=== PATIENT | female | born 2000 | race Caucasian/White ===

== ENCOUNTER 2020-08-24 23:16 | Emergency (ER) | payer OTHER ==
[~2020-08-24] VITALS: Ht 208.3 cm; Wt 77.1 kg
[~2020-08-24 23:16] MED LIST: Crutch1 EACH MISC; IBUP600 PO; IBUP800 PO; VICODIN 5-3001 EACH PO
[2020-08-25 00:05] LABS: Source, Urine Clean Catch
[2020-08-25] MEDS ORDERED: Macrobid 100 M100 MG PO (00:06)
[2020-08-25 00:07] LABS: Bilirubin, Urine Neg (Neg); Blood, Urine 5+ (Neg); Glucose Qualitative, Urine Neg (Neg); Ketones, Urine Neg (Neg); Leukocyte Esterase, Urine 3+ (Neg); Nitrite, Urine Neg (Neg); Protein, Urine 2+ (Neg); Urobilinogen, Urine NORM (Normal)
[2020-08-25 00:12] LABS: Appearance, Urine Clear (Clear); Color, Urine Yellow (P-Yellow)
[2020-08-25 00:13] LABS: Bacteria Mod /hpf; Squamous Epithelial Cells Not Seen /hpf (Few); White Blood Cells, Urine 25-50 /hpf (0-5)
== END 2020-08-25 00:20 | disposition home or self-care (01) ==
LOC: ER 23:16
PROVIDERS: Physician Assistant
DX: N39.0 Urinary tract infection, site not specified (principal)
CPT/HCPCS: 81001; 81025; 87086; 99283

== ENCOUNTER → 2021-07-08 | Outpatient (CLI) | payer OTHER ==
[~2021-07-08] MED LIST changes: +Macrobid 100 M100 MG PO
== END | disposition home or self-care (01) ==
LOC: LAB 16:55 → LAB SHORT 16:55
PROVIDERS: Obstetrics & Gynecology
DX: Z01.419 Encounter for gynecological examination (general) (routine) without abnormal findings (principal)
CPT/HCPCS: G0123

== ENCOUNTER → 2021-10-30 | Outpatient (CLI) | payer OTHER ==
[~2021-10-30] MED LIST changes: +ESTARYLLA 0.251 EACH PO
== END | disposition home or self-care (01) ==
LOC: LAB SHORT 14:15
DX: R31.9 Hematuria, unspecified (principal)
CPT/HCPCS: 87086

== ENCOUNTER 2021-11-02 21:20 | Emergency (ER) | payer OTHER ==
[~2021-11-02] VITALS: Ht 175.3 cm; Wt 86.2 kg
[~2021-11-02 21:20] MED LIST changes: -ESTARYLLA 0.251 EACH PO
[2021-11-02] MEDS ORDERED: ESTARYLLA 0.251 EACH PO (21:54)
[2021-11-02 22:54] LABS: Source, Urine Clean Catch
[2021-11-02 22:59] LABS: BASOPHILS ABSOLUTE AUTO 0.04 K/mm3 (0.00-0.23); BASOPHILS PERCENT AUTO 0 % (0-2); EOSINOPHILS ABSOLUTE AUTO 0.01 K/mm3 (0.00-0.68); EOSINOPHILS PERCENT AUTO 0 % (0-6); Hematocrit 38.2 % (33.0-51.0); Hemoglobin 12.9 g/dL (11.5-16.0); IMMATURE GRAN ABSOLUTE AUTO 0.06 K/mm3 (0.00-0.10); IMMATURE GRAN PERCENT AUTO 1 % (0-1); LYMPHOCYTES ABSOLUTE AUTO 1.29 K/mm3 (0.84-5.20); LYMPHOCYTES PERCENT AUTO 11 % (21-46); MONOCYTES PERCENT AUTO 6 % (4-13); Mean Corpuscular HGB Conc 33.8 g/dL (31.5-36.5); Mean Corpuscular Volume 86 fL (80-100); Mean Platelet Volume 8.9 fL (9.1-12.4); NEUTROPHILS ABSOLUTE AUTO 9.76 K/mm3 (1.96-9.15); NEUTROPHILS PERCENT AUTO 82 % (41-73); Platelet Count 302 K/mm3 (150-400); RDW Coefficient Variation 11.5 % (11.7-14.2); RDW Standard Deviation 35.6 fL (35.1-46.3); Red Blood Cell Count 4.45 M/mm3 (3.80-5.20); White Blood Cell Count 11.86 K/mm3 (4.00-11.30)
[2021-11-02 23:01] LABS: Bilirubin, Urine Neg (Neg); Blood, Urine 4+ (Neg); Glucose Qualitative, Urine Neg (Neg); Ketones, Urine Neg (Neg); Leukocyte Esterase, Urine Neg (Neg); Nitrite, Urine Neg (Neg); Protein, Urine Neg (Neg); Specific Gravity, Urine 1.005 (1.003-1.022); Urobilinogen, Urine NORM (Normal)
[2021-11-02 23:02] LABS: Appearance, Urine Clear (Clear); Color, Urine Pale Yellow (P-Yellow)
[2021-11-02 23:13] LABS: Bacteria Not Seen /hpf; Squamous Epithelial Cells Rare /hpf (Few); White Blood Cells, Urine Not Seen /hpf (0-5)
[2021-11-02 23:25] LABS: Alanine Aminotransfer (ALT/SGP 23 U/L (12-78); Albumin, Blood 3.7 g/dL (3.4-5.0); Albumin/Globulin Ratio 0.8 (0.8-1.8); Alk Phos 80 U/L (50-136); Anion Gap 7 mmol/L (6-16); Aspartate Aminotrans (AST/SGOT 12 U/L (12-37); Bilirubin, Total 0.2 mg/dL (0.1-1.0); Blood Urea Nitrogen 12 mg/dL (8-24); Bun/Creatinine Ratio 13.4 (12.0-20.0); CO2, Blood 24 mmol/L (21-32); Calcium, Blood 9.2 mg/dL (8.5-10.1); Chloride, Blood 110 mmol/L (98-108); Globulin, Blood 4.5 g/dL (2.2-4.0); Glomerular Filtration Rate >60 (60-); Glucose, Blood 107 mg/dL (70-99); Magnesium, Blood 2.3 mg/dL (1.6-2.4); Potassium, Blood 3.6 mmol/L (3.5-5.5); Sodium, Blood 141 mmol/L (136-145); Total Protein, Blood 8.2 g/dL (6.4-8.2)
[2021-11-03] LABS: Influenza A, PCR NEGATIVE (NEGATIVE); Influenza B, PCR NEGATIVE (NEGATIVE); Resp Syncytial Virus, PCR NEGATIVE (NEGATIVE); SARS-Cov-2 (COVID-19) PCR, MMC NEGATIVE (NEGATIVE)
== END 2021-11-03 00:52 | disposition home or self-care (01) ==
LOC: ER 21:20
PROVIDERS: Emergency Medicine
DX: R20.2 Paresthesia of skin (principal); F41.9 Anxiety disorder, unspecified; Z20.822 Contact with and (suspected) exposure to COVID-19
CPT/HCPCS: 0241U; 36415; 80053; 81001; 81025; 83735; 85025; 93005; 93010; A9270

== ENCOUNTER 2021-11-28 12:31 | Emergency (ER) | payer OTHER ==
[~2021-11-28] VITALS: Ht 177.8 cm; Wt 88.0 kg
[~2021-11-28 12:31] MED LIST changes: +ESTARYLLA 0.251 EACH PO
[2021-11-28 13:21] LABS: BASOPHILS ABSOLUTE AUTO 0.02 K/mm3 (0.00-0.23); BASOPHILS PERCENT AUTO 0 % (0-2); EOSINOPHILS ABSOLUTE AUTO 0.04 K/mm3 (0.00-0.68); EOSINOPHILS PERCENT AUTO 1 % (0-6); Hematocrit 38.3 % (33.0-51.0); Hemoglobin 12.7 g/dL (11.5-16.0); IMMATURE GRAN ABSOLUTE AUTO 0.02 K/mm3 (0.00-0.10); IMMATURE GRAN PERCENT AUTO 0 % (0-1); LYMPHOCYTES ABSOLUTE AUTO 1.79 K/mm3 (0.84-5.20); LYMPHOCYTES PERCENT AUTO 25 % (21-46); MONOCYTES ABSOLUTE AUTO 0.53 K/mm3 (0.16-1.47); MONOCYTES PERCENT AUTO 7 % (4-13); Mean Corpuscular HGB 28.9 pg (26.0-34.0); Mean Corpuscular HGB Conc 33.2 g/dL (31.5-36.5); Mean Corpuscular Volume 87 fL (80-100); Mean Platelet Volume 8.8 fL (9.1-12.4); NEUTROPHILS ABSOLUTE AUTO 4.92 K/mm3 (1.96-9.15); NEUTROPHILS PERCENT AUTO 67 % (41-73); Platelet Count 301 K/mm3 (150-400); RDW Coefficient Variation 11.6 % (11.7-14.2); RDW Standard Deviation 37.1 fL (35.1-46.3); White Blood Cell Count 7.32 K/mm3 (4.00-11.30)
[2021-11-28 13:49] LABS: Alanine Aminotransfer (ALT/SGP 22 U/L (12-78); Albumin, Blood 3.8 g/dL (3.4-5.0); Albumin/Globulin Ratio 0.9 (0.8-1.8); Alk Phos 82 U/L (50-136); Anion Gap 7 mmol/L (6-16); Aspartate Aminotrans (AST/SGOT 13 U/L (12-37); Bilirubin, Total 0.4 mg/dL (0.1-1.0); Blood Urea Nitrogen 13 mg/dL (8-24); Bun/Creatinine Ratio 16.5 (12.0-20.0); CO2, Blood 23 mmol/L (21-32); Calcium, Blood 9.3 mg/dL (8.5-10.1); Chloride, Blood 111 mmol/L (98-108); Creatinine, Blood 0.79 mg/dL (0.40-1.00); Globulin, Blood 4.4 g/dL (2.2-4.0); Glomerular Filtration Rate >60 (60-); Glucose, Blood 117 mg/dL (70-99); Potassium, Blood 3.4 mmol/L (3.5-5.5); Sodium, Blood 141 mmol/L (136-145); Total Protein, Blood 8.2 g/dL (6.4-8.2)
== END 2021-11-28 18:05 | disposition home or self-care (01) ==
LOC: ER 12:31
PROVIDERS: Physician Assistant
DX: F41.1 Generalized anxiety disorder (principal); R00.2 Palpitations; Z79.899 Other long term (current) drug therapy
CPT/HCPCS: 71046; 80053; 84484; 85025; 93005; 93010; 99284-25

== ENCOUNTER 2021-12-03 03:38 | Emergency (ER) | payer OTHER ==
[~2021-12-03] VITALS: Ht 177.8 cm; Wt 86.2 kg
[2021-12-03] MEDS ORDERED: XANAX0.25 MG PO (03:48)
[2021-12-03] MEDS ORDERED: CELEXA10 MG PO (03:48)
[2021-12-03] MEDS ORDERED: HYDHCL25 PO (03:55)
== END 2021-12-03 04:18 | disposition home or self-care (01) ==
LOC: ER 03:38
DX: F41.9 Anxiety disorder, unspecified (principal)
CPT/HCPCS: 99283

== ENCOUNTER 2021-12-04 12:31 | Emergency (ER) | payer OTHER ==
[~2021-12-04] VITALS: Ht 177.8 cm; Wt 85.7 kg
[~2021-12-04 12:31] MED LIST changes: +CELEXA10 MG PO; +HYDHCL25 PO; +XANAX0.25 MG PO
[2021-12-04 13:46] LABS: BASOPHILS ABSOLUTE AUTO 0.03 K/mm3 (0.00-0.23); BASOPHILS PERCENT AUTO 0 % (0-2); EOSINOPHILS ABSOLUTE AUTO 0.01 K/mm3 (0.00-0.68); EOSINOPHILS PERCENT AUTO 0 % (0-6); Hematocrit 40.6 % (33.0-51.0); Hemoglobin 13.5 g/dL (11.5-16.0); IMMATURE GRAN ABSOLUTE AUTO 0.02 K/mm3 (0.00-0.10); IMMATURE GRAN PERCENT AUTO 0 % (0-1); LYMPHOCYTES ABSOLUTE AUTO 1.34 K/mm3 (0.84-5.20); LYMPHOCYTES PERCENT AUTO 19 % (21-46); MONOCYTES ABSOLUTE AUTO 0.36 K/mm3 (0.16-1.47); MONOCYTES PERCENT AUTO 5 % (4-13); Mean Corpuscular HGB 28.9 pg (26.0-34.0); Mean Corpuscular HGB Conc 33.3 g/dL (31.5-36.5); Mean Corpuscular Volume 87 fL (80-100); Mean Platelet Volume 8.7 fL (9.1-12.4); NEUTROPHILS ABSOLUTE AUTO 5.27 K/mm3 (1.96-9.15); NEUTROPHILS PERCENT AUTO 75 % (41-73); Platelet Count 334 K/mm3 (150-400); RDW Coefficient Variation 11.6 % (11.7-14.2); RDW Standard Deviation 36.7 fL (35.1-46.3); Red Blood Cell Count 4.67 M/mm3 (3.80-5.20); White Blood Cell Count 7.03 K/mm3 (4.00-11.30)
[2021-12-04 13:50] LABS: Influenza A, PCR NEGATIVE (NEGATIVE); Influenza B, PCR NEGATIVE (NEGATIVE); Resp Syncytial Virus, PCR NEGATIVE (NEGATIVE); SARS-Cov-2 (COVID-19) PCR, MMC NEGATIVE (NEGATIVE)
[2021-12-04 13:57] LABS: Anion Gap 7 mmol/L (6-16); Blood Urea Nitrogen 10 mg/dL (8-24); Bun/Creatinine Ratio 12.3 (12.0-20.0); CO2, Blood 25 mmol/L (21-32); Calcium, Blood 9.8 mg/dL (8.5-10.1); Chloride, Blood 107 mmol/L (98-108); Creatinine, Blood 0.82 mg/dL (0.40-1.00); Glomerular Filtration Rate >60 (60-); Glucose, Blood 112 mg/dL (70-99); Potassium, Blood 3.4 mmol/L (3.5-5.5); Sodium, Blood 139 mmol/L (136-145)
[2021-12-04 14:08] LABS: Source, Urine Clean Catch
[2021-12-04 14:16] LABS: Appearance, Urine Clear (Clear); Bilirubin, Urine Neg (Neg); Blood, Urine 5+ (Neg); Color, Urine Yellow (P-Yellow); Glucose Qualitative, Urine Neg (Neg); Ketones, Urine Neg (Neg); Leukocyte Esterase, Urine Neg (Neg); Nitrite, Urine Neg (Neg); Protein, Urine Neg (Neg); Specific Gravity, Urine 1.005 (1.003-1.022); Urobilinogen, Urine NORM (Normal)
[2021-12-04 14:28] LABS: Bacteria Few /hpf; Squamous Epithelial Cells Few /hpf (Few); White Blood Cells, Urine 0-2 /hpf (0-5)
== END 2021-12-04 17:06 | disposition home or self-care (01) ==
LOC: ER 12:31
PROVIDERS: Physician Assistant
DX: R11.2 Nausea with vomiting, unspecified (principal); R19.7 Diarrhea, unspecified; R20.0 Anesthesia of skin; R00.2 Palpitations; R25.1 Tremor, unspecified; T43.225A Adverse effect of selective serotonin reuptake inhibitors, initial encounter; Z79.899 Other long term (current) drug therapy
CPT/HCPCS: 0241U; 36415; 70450; 80048; 81001; 81025; 85025; 87086; 96374; 99284-25; J2405; J7030

== ENCOUNTER → 2021-12-22 | Outpatient (CLI) | payer OTHER | END | disposition home or self-care (01) | LOC: LAB 14:15 → LAB SHORT 14:15 | DX: N39.0 Urinary tract infection, site not specified (principal) | CPT/HCPCS: 87077; 87086; 87186 ==

== ENCOUNTER → 2021-12-25 | Outpatient (CLI) | payer OTHER ==
[2021-12-25 19:31] LABS: BASOPHILS ABSOLUTE AUTO 0.03 K/mm3 (0.00-0.23); BASOPHILS PERCENT AUTO 0 % (0-2); EOSINOPHILS ABSOLUTE AUTO 0.05 K/mm3 (0.00-0.68); EOSINOPHILS PERCENT AUTO 1 % (0-6); Hematocrit 37.9 % (33.0-51.0); Hemoglobin 12.6 g/dL (11.5-16.0); IMMATURE GRAN ABSOLUTE AUTO 0.03 K/mm3 (0.00-0.10); IMMATURE GRAN PERCENT AUTO 0 % (0-1); LYMPHOCYTES ABSOLUTE AUTO 1.99 K/mm3 (0.84-5.20); LYMPHOCYTES PERCENT AUTO 21 % (21-46); MONOCYTES ABSOLUTE AUTO 0.73 K/mm3 (0.16-1.47); MONOCYTES PERCENT AUTO 8 % (4-13); Mean Corpuscular HGB 28.8 pg (26.0-34.0); Mean Corpuscular HGB Conc 33.2 g/dL (31.5-36.5); Mean Corpuscular Volume 87 fL (80-100); Mean Platelet Volume 9.1 fL (9.1-12.4); NEUTROPHILS ABSOLUTE AUTO 6.55 K/mm3 (1.96-9.15); NEUTROPHILS PERCENT AUTO 70 % (41-73); Platelet Count 324 K/mm3 (150-400); RDW Coefficient Variation 11.9 % (11.7-14.2); RDW Standard Deviation 37.5 fL (35.1-46.3); Red Blood Cell Count 4.37 M/mm3 (3.80-5.20); White Blood Cell Count 9.38 K/mm3 (4.00-11.30)
[2021-12-25 19:48] LABS: Alanine Aminotransfer (ALT/SGP 32 U/L (12-78); Albumin, Blood 3.9 g/dL (3.4-5.0); Alk Phos 111 U/L (50-136); Anion Gap 7 mmol/L (6-16); Aspartate Aminotrans (AST/SGOT 18 U/L (12-37); Bilirubin, Total 0.5 mg/dL (0.1-1.0); Blood Urea Nitrogen 7 mg/dL (8-24); Bun/Creatinine Ratio 8.8 (12.0-20.0); CO2, Blood 24 mmol/L (21-32); Calcium, Blood 9.2 mg/dL (8.5-10.1); Chloride, Blood 109 mmol/L (98-108); Creatinine, Blood 0.79 mg/dL (0.40-1.00); Globulin, Blood 3.8 g/dL (2.2-4.0); Glomerular Filtration Rate >60 (60-); Glucose, Blood 85 mg/dL (70-99); Magnesium, Blood 2.3 mg/dL (1.6-2.4); Potassium, Blood 3.6 mmol/L (3.5-5.5); Sodium, Blood 140 mmol/L (136-145); Total Protein, Blood 7.7 g/dL (6.4-8.2)
== END | disposition home or self-care (01) ==
LOC: LAB SHORT 17:55 → LAB 17:55
PROVIDERS: Nurse Practitioner Family
DX: R42 Dizziness and giddiness (principal)
CPT/HCPCS: 80053; 83735; 84443; 85025; 86140

== ENCOUNTER 2021-12-30 16:11 | Emergency (ER) | payer OTHER ==
[~2021-12-30] VITALS: Ht 177.8 cm; Wt 88.0 kg
== END 2021-12-30 18:00 | disposition home or self-care (01) ==
LOC: ER 16:11
DX: F41.9 Anxiety disorder, unspecified (principal); R53.1 Weakness
CPT/HCPCS: 82947; 93005; 93010; 99283-25

== ENCOUNTER 2022-01-07 11:20 | Emergency (ER) | payer OTHER ==
[~2022-01-07] VITALS: Ht 177.8 cm; Wt 86.2 kg
[2022-01-07 12:23] LABS: Source, Urine Clean Catch
[2022-01-07 12:24] LABS: BASOPHILS ABSOLUTE AUTO 0.03 K/mm3 (0.00-0.23); BASOPHILS PERCENT AUTO 0 % (0-2); EOSINOPHILS ABSOLUTE AUTO 0.04 K/mm3 (0.00-0.68); EOSINOPHILS PERCENT AUTO 1 % (0-6); Hematocrit 36.6 % (33.0-51.0); Hemoglobin 12.2 g/dL (11.5-16.0); IMMATURE GRAN ABSOLUTE AUTO 0.02 K/mm3 (0.00-0.10); IMMATURE GRAN PERCENT AUTO 0 % (0-1); LYMPHOCYTES ABSOLUTE AUTO 1.96 K/mm3 (0.84-5.20); LYMPHOCYTES PERCENT AUTO 22 % (21-46); MONOCYTES ABSOLUTE AUTO 0.87 K/mm3 (0.16-1.47); MONOCYTES PERCENT AUTO 10 % (4-13); Mean Corpuscular HGB 29.3 pg (26.0-34.0); Mean Corpuscular HGB Conc 33.3 g/dL (31.5-36.5); Mean Corpuscular Volume 88 fL (80-100); NEUTROPHILS ABSOLUTE AUTO 5.83 K/mm3 (1.96-9.15); NEUTROPHILS PERCENT AUTO 67 % (41-73); Platelet Count 277 K/mm3 (150-400); RDW Standard Deviation 38.5 fL (35.1-46.3); Red Blood Cell Count 4.16 M/mm3 (3.80-5.20); White Blood Cell Count 8.75 K/mm3 (4.00-11.30)
[2022-01-07 12:26] LABS: Appearance, Urine Clear (Clear); Bilirubin, Urine Neg (Neg); Blood, Urine 4+ (Neg); Color, Urine Yellow (P-Yellow); Glucose Qualitative, Urine Neg (Neg); Ketones, Urine Neg (Neg); Leukocyte Esterase, Urine Neg (Neg); Nitrite, Urine Neg (Neg); Protein, Urine Neg (Neg); Specific Gravity, Urine 1.015 (1.003-1.022); Urobilinogen, Urine NORM (Normal)
[2022-01-07 12:53] LABS: Alanine Aminotransfer (ALT/SGP 30 U/L (12-78); Albumin, Blood 3.7 g/dL (3.4-5.0); Alk Phos 83 U/L (50-136); Anion Gap 6 mmol/L (6-16); Aspartate Aminotrans (AST/SGOT 18 U/L (12-37); Bilirubin, Total 0.4 mg/dL (0.1-1.0); Blood Urea Nitrogen 11 mg/dL (8-24); Bun/Creatinine Ratio 15.8 (12.0-20.0); CO2, Blood 26 mmol/L (21-32); Calcium, Blood 9.1 mg/dL (8.5-10.1); Chloride, Blood 109 mmol/L (98-108); Globulin, Blood 3.7 g/dL (2.2-4.0); Glomerular Filtration Rate >60 (60-); Glucose, Blood 80 mg/dL (70-99); Potassium, Blood 3.6 mmol/L (3.5-5.5); Sodium, Blood 141 mmol/L (136-145); Total Protein, Blood 7.4 g/dL (6.4-8.2)
[2022-01-07 13:32] LABS: Bacteria Rare /hpf; Squamous Epithelial Cells Rare /hpf (Few); White Blood Cells, Urine 0-2 /hpf (0-5)
[2022-01-19] MEDS ORDERED: CYMBALTA30 M2 PO (15:29)
== END 2022-01-07 14:00 | disposition home or self-care (01) ==
LOC: ER 11:20
PROVIDERS: Physician Assistant
DX: R55 Syncope and collapse (principal)
CPT/HCPCS: 80053; 81001; 81025; 83690; 85025; 93005; 93010; 96374; 99284-25; J1885

== ENCOUNTER → 2022-01-08 | Outpatient (CLI) | payer OTHER ==
[~2022-01-08] MED LIST changes: +CYMBALTA30 M2 PO
[2022-01-08 12:44] LABS: Source, Urine Clean Catch
[2022-01-08 15:39] LABS: Bacteria Mod /hpf; Mucus Light (0-Heavy); Squamous Epithelial Cells Many /hpf (Few)
== END | disposition home or self-care (01) ==
LOC: LAB 12:42 → LAB SHORT 12:42
PROVIDERS: Student in an Organized Health Care Education/Training Program
DX: R31.9 Hematuria, unspecified (principal)
CPT/HCPCS: 81015; 87086

== ENCOUNTER → 2022-01-11 | Outpatient (CLI) | payer OTHER ==
[~2022-01-11] MED LIST changes: -CYMBALTA30 M2 PO
== END | disposition home or self-care (01) ==
LOC: LAB SHORT 15:30 → LAB 15:30
DX: R03.0 Elevated blood-pressure reading, without diagnosis of hypertension (principal)
CPT/HCPCS: 87086

== ENCOUNTER 2022-01-20 14:24 | Emergency (ER) | payer SELFPAY ==
[~2022-01-20] VITALS: Ht 180.3 cm; Wt 86.2 kg
[~2022-01-20 14:24] MED LIST changes: +CYMBALTA30 M2 PO
== END 2022-01-20 15:51 | disposition home or self-care (01) ==
LOC: ER 14:24
DX: F41.9 Anxiety disorder, unspecified (principal); R51.9 Headache, unspecified
CPT/HCPCS: 99283; A9270

== ENCOUNTER 2022-01-20 20:57 | Emergency (ER) | payer SELFPAY ==
[~2022-01-20] VITALS: Ht 177.8 cm; Wt 86.2 kg
== END 2022-01-20 22:36 | disposition home or self-care (01) ==
LOC: ER 20:57
DX: F41.9 Anxiety disorder, unspecified (principal); R20.0 Anesthesia of skin; Z79.899 Other long term (current) drug therapy
CPT/HCPCS: 99283

== ENCOUNTER → 2022-02-26 | Outpatient (CLI) | payer SELFPAY ==
[2022-02-26 14:22] LABS: BASOPHILS ABSOLUTE AUTO 0.02 K/mm3 (0.00-0.23); BASOPHILS PERCENT AUTO 0 % (0-2); EOSINOPHILS ABSOLUTE AUTO 0.03 K/mm3 (0.00-0.68); EOSINOPHILS PERCENT AUTO 0 % (0-6); Hematocrit 40.9 % (33.0-51.0); Hemoglobin 13.8 g/dL (11.5-16.0); IMMATURE GRAN ABSOLUTE AUTO 0.04 K/mm3 (0.00-0.10); IMMATURE GRAN PERCENT AUTO 1 % (0-1); LYMPHOCYTES ABSOLUTE AUTO 1.46 K/mm3 (0.84-5.20); LYMPHOCYTES PERCENT AUTO 16 % (21-46); MONOCYTES PERCENT AUTO 7 % (4-13); Mean Corpuscular HGB 29.2 pg (26.0-34.0); Mean Corpuscular HGB Conc 33.7 g/dL (31.5-36.5); Mean Corpuscular Volume 87 fL (80-100); Mean Platelet Volume 8.7 fL (9.1-12.4); NEUTROPHILS ABSOLUTE AUTO 6.73 K/mm3 (1.96-9.15); NEUTROPHILS PERCENT AUTO 76 % (41-73); Platelet Count 303 K/mm3 (150-400); RDW Coefficient Variation 11.8 % (11.7-14.2); RDW Standard Deviation 37.2 fL (35.1-46.3); Red Blood Cell Count 4.72 M/mm3 (3.80-5.20); White Blood Cell Count 8.88 K/mm3 (4.00-11.30)
[2022-02-26 14:40] LABS: Alanine Aminotransfer (ALT/SGP 42 U/L (12-78); Albumin, Blood 4.1 g/dL (3.4-5.0); Alk Phos 110 U/L (40-126); Anion Gap 9 mmol/L (6-16); Aspartate Aminotrans (AST/SGOT 20 U/L (12-37); Bilirubin, Total 0.4 mg/dL (0.1-1.0); Blood Urea Nitrogen 13 mg/dL (8-24); Bun/Creatinine Ratio 15.5 (12.0-20.0); CO2, Blood 27 mmol/L (21-32); Calcium, Blood 9.4 mg/dL (8.5-10.1); Chloride, Blood 104 mmol/L (98-108); Creatinine, Blood 0.84 mg/dL (0.40-1.00); Globulin, Blood 4.3 g/dL (2.2-4.0); Glomerular Filtration Rate >60 (60-); Glucose, Blood 86 mg/dL (70-99); Potassium, Blood 3.9 mmol/L (3.5-5.5); Sodium, Blood 140 mmol/L (136-145); Thyroid Stimulating Hormone 1.749 uIU/mL (0.360-4.800); Total Protein, Blood 8.4 g/dL (6.4-8.2)
== END | disposition home or self-care (01) ==
LOC: LAB SHORT 14:17
PROVIDERS: Physician Assistant
DX: R55 Syncope and collapse (principal); R53.83 Other fatigue; R31.9 Hematuria, unspecified
CPT/HCPCS: 80053; 84443; 85025; 87086

== ENCOUNTER 2022-03-16 20:18 | Emergency (ER) | payer BC ==
[~2022-03-16] VITALS: Ht 180.3 cm; Wt 86.2 kg
== END 2022-03-16 20:45 | disposition home or self-care (01) ==
LOC: ER 20:18
DX: F41.9 Anxiety disorder, unspecified (principal); R20.2 Paresthesia of skin; Z79.899 Other long term (current) drug therapy
CPT/HCPCS: 99283

== ENCOUNTER 2022-03-21 19:40 | Emergency (ER) | payer BC ==
[~2022-03-21] VITALS: Ht 177.8 cm; Wt 90.7 kg
== END 2022-03-21 21:54 | disposition left against medical advice (07) ==
LOC: ER 19:40
DX: F41.9 Anxiety disorder, unspecified (principal); H57.9 Unspecified disorder of eye and adnexa; Z79.899 Other long term (current) drug therapy; Z53.21 Procedure and treatment not carried out due to patient leaving prior to being seen by health care provider
CPT/HCPCS: 99281

== ENCOUNTER 2022-04-01 20:34 | Emergency (ER) | payer BC ==
[~2022-04-01] VITALS: Ht 177.8 cm; Wt 89.8 kg
== END 2022-04-01 21:59 | disposition home or self-care (01) ==
LOC: ER 20:34
DX: R42 Dizziness and giddiness (principal); Z79.899 Other long term (current) drug therapy
CPT/HCPCS: 93005; 93010; 99283-25

== ENCOUNTER → 2022-04-20 | Outpatient (CLI) | payer BC ==
[2022-04-20 17:32] LABS: BASOPHILS ABSOLUTE AUTO 0.02 K/mm3 (0.00-0.23); BASOPHILS PERCENT AUTO 0 % (0-2); EOSINOPHILS ABSOLUTE AUTO 0.19 K/mm3 (0.00-0.68); EOSINOPHILS PERCENT AUTO 3 % (0-6); Hematocrit 37.7 % (33.0-51.0); Hemoglobin 12.8 g/dL (11.5-16.0); IMMATURE GRAN ABSOLUTE AUTO 0.02 K/mm3 (0.00-0.10); IMMATURE GRAN PERCENT AUTO 0 % (0-1); LYMPHOCYTES ABSOLUTE AUTO 2.23 K/mm3 (0.84-5.20); LYMPHOCYTES PERCENT AUTO 32 % (21-46); MONOCYTES ABSOLUTE AUTO 0.61 K/mm3 (0.16-1.47); MONOCYTES PERCENT AUTO 9 % (4-13); Mean Corpuscular HGB 28.9 pg (26.0-34.0); Mean Corpuscular Volume 85 fL (80-100); Mean Platelet Volume 9.1 fL (9.1-12.4); NEUTROPHILS ABSOLUTE AUTO 3.88 K/mm3 (1.96-9.15); NEUTROPHILS PERCENT AUTO 56 % (41-73); Platelet Count 293 K/mm3 (150-400); RDW Coefficient Variation 11.6 % (11.7-14.2); RDW Standard Deviation 35.5 fL (35.1-46.3); Red Blood Cell Count 4.43 M/mm3 (3.80-5.20); White Blood Cell Count 6.95 K/mm3 (4.00-11.30)
[2022-04-20 17:47] LABS: C-REACTIVE PROTEIN, EXT RANGE 0.329 mg/dL (0.000-0.300); Magnesium, Blood 2.3 mg/dL (1.6-2.4)
[2022-04-20 17:48] LABS: Albumin, Blood 4.1 g/dL (3.4-5.0); Albumin/Globulin Ratio 1.1 (0.8-1.8); Bilirubin, Total 0.4 mg/dL (0.1-1.0); Bun/Creatinine Ratio 21.2 (12.0-20.0); Calcium, Blood 9.6 mg/dL (8.5-10.1); Creatinine, Blood 0.71 mg/dL (0.40-1.00); Globulin, Blood 3.9 g/dL (2.2-4.0); Potassium, Blood 3.6 mmol/L (3.5-5.5)
== END | disposition home or self-care (01) ==
LOC: LAB SHORT 17:23 → LAB 17:23
PROVIDERS: Nurse Practitioner Family
DX: M25.50 Pain in unspecified joint (principal); R11.0 Nausea
CPT/HCPCS: 80053; 83735; 85025; 86140

== ENCOUNTER → 2022-08-25 | Outpatient (CLI) | payer BC ==
[~2022-08-25] MED LIST changes: +MIRT30 PO; +ONDA4ODT MM; +TAMS.4ER PO
== END ==
LOC: LAB SHORT 17:30 → LAB 17:30
DX: R30.0 Dysuria (principal)
CPT/HCPCS: 87086

== ENCOUNTER 2022-08-27 11:28 | Emergency (ER) | payer BC ==
[~2022-08-27] VITALS: Ht 175.3 cm; Wt 88.5 kg
[~2022-08-27 11:28] MED LIST changes: -MIRT30 PO; -ONDA4ODT MM; -TAMS.4ER PO
[2022-08-27] MEDS ORDERED: MIRT30 PO (12:05)
[2022-08-27 12:08] LABS: Source, Urine Clean Catch
[2022-08-27 12:12] LABS: Appearance, Urine Clear (Clear); Bilirubin, Urine Neg (Neg); Blood, Urine 5+ (Neg); Color, Urine Yellow (P-Yellow); Glucose Qualitative, Urine Neg (Neg); Ketones, Urine Neg (Neg); Leukocyte Esterase, Urine Neg (Neg); Nitrite, Urine Neg (Neg); Protein, Urine Neg (Neg); Urobilinogen, Urine NORM (Normal)
[2022-08-27 12:20] LABS: Bacteria Few /hpf; Squamous Epithelial Cells Few /hpf (Few); White Blood Cells, Urine 0-2 /hpf (0-5)
[2022-08-27 13:27] LABS: Influenza A, PCR NEGATIVE (NEGATIVE); Influenza B, PCR NEGATIVE (NEGATIVE); Resp Syncytial Virus, PCR NEGATIVE (NEGATIVE); SARS-Cov-2 (COVID-19) PCR, MMC NEGATIVE (NEGATIVE)
[2022-08-27] MEDS ORDERED: TAMS.4ER PO (13:39)
[2022-08-27] MEDS ORDERED: ONDA4ODT MM (13:40)
== END 2022-08-27 14:07 | disposition home or self-care (01) ==
LOC: ER 11:28
PROVIDERS: Physician Assistant; Student in an Organized Health Care Education/Training Program
DX: N20.0 Calculus of kidney (principal); B34.9 Viral infection, unspecified; F41.9 Anxiety disorder, unspecified; Z79.899 Other long term (current) drug therapy
CPT/HCPCS: 0241U; 74176; 81001; 81025; A9270; J1885

== ENCOUNTER → 2022-10-07 | Outpatient (CLI) | payer BC ==
[~2022-10-07] MED LIST changes: +MIRT30 PO; +ONDA4ODT MM; +TAMS.4ER PO
[2022-10-07 15:59] LABS: BASOPHILS ABSOLUTE AUTO 0.01 K/mm3 (0.00-0.23); BASOPHILS PERCENT AUTO 0 % (0-2); EOSINOPHILS ABSOLUTE AUTO 0.01 K/mm3 (0.00-0.68); EOSINOPHILS PERCENT AUTO 0 % (0-6); Hematocrit 38.3 % (33.0-51.0); IMMATURE GRAN ABSOLUTE AUTO 0.02 K/mm3 (0.00-0.10); IMMATURE GRAN PERCENT AUTO 0 % (0-1); LYMPHOCYTES ABSOLUTE AUTO 1.53 K/mm3 (0.84-5.20); LYMPHOCYTES PERCENT AUTO 20 % (21-46); MONOCYTES ABSOLUTE AUTO 0.55 K/mm3 (0.16-1.47); MONOCYTES PERCENT AUTO 7 % (4-13); Mean Corpuscular HGB 29.1 pg (26.0-34.0); Mean Corpuscular HGB Conc 33.9 g/dL (31.5-36.5); Mean Corpuscular Volume 86 fL (80-100); Mean Platelet Volume 8.7 fL (9.1-12.4); NEUTROPHILS ABSOLUTE AUTO 5.43 K/mm3 (1.96-9.15); NEUTROPHILS PERCENT AUTO 72 % (41-73); Platelet Count 263 K/mm3 (150-400); RDW Coefficient Variation 11.9 % (11.7-14.2); RDW Standard Deviation 36.6 fL (35.1-46.3); Red Blood Cell Count 4.47 M/mm3 (3.80-5.20); White Blood Cell Count 7.55 K/mm3 (4.00-11.30)
[2022-10-07 16:09] LABS: Albumin, Blood 4.5 g/dL (3.4-5.0); Albumin/Globulin Ratio 1.1 (0.8-1.8); Bilirubin, Total 0.4 mg/dL (0.1-1.0); Bun/Creatinine Ratio 14.5 (12.0-20.0); Calcium, Blood 9.3 mg/dL (8.5-10.1); Creatinine, Blood 0.83 mg/dL (0.40-1.00); Globulin, Blood 4.1 g/dL (2.2-4.0); Potassium, Blood 3.5 mmol/L (3.5-5.5); Total Protein, Blood 8.6 g/dL (6.4-8.2)
== END | disposition home or self-care (01) ==
LOC: LAB SHORT 15:54
PROVIDERS: Physician Assistant
DX: R31.9 Hematuria, unspecified (principal); R11.0 Nausea
CPT/HCPCS: 80053; 85025

== ENCOUNTER 2022-10-22 17:19 | Emergency (ER) | payer OTHER, BC ==
[~2022-10-22] VITALS: Ht 177.8 cm; Wt 88.0 kg
[2022-10-22 17:58] LABS: Source, Urine Clean Catch
[2022-10-22 18:05] LABS: Bilirubin, Urine Neg (Neg); Blood, Urine 4+ (Neg); Glucose Qualitative, Urine Neg (Neg); Ketones, Urine Neg (Neg); Leukocyte Esterase, Urine Neg (Neg); Nitrite, Urine Neg (Neg); Protein, Urine Neg (Neg); Specific Gravity, Urine 1.015 (1.003-1.022); Urobilinogen, Urine NORM (Normal)
[2022-10-22 18:15] LABS: Color, Urine Pale Yellow (P-Yellow)
[2022-10-22 18:16] LABS: Appearance, Urine Hazy (Clear)
[2022-10-22 18:17] LABS: Bacteria Mod /hpf; Mucus Light (0-Heavy); Squamous Epithelial Cells Rare /hpf (Few); White Blood Cells, Urine 0-2 /hpf (0-5)
== END 2022-10-22 21:19 | disposition home or self-care (01) ==
LOC: ER 17:19
PROVIDERS: Physician Assistant
DX: S37.032A Laceration of left kidney, unspecified degree, initial encounter (principal); V86.62XA Passenger of snowmobile injured in nontraffic accident, initial encounter
CPT/HCPCS: 36415; 76801; 76817; 81001; 84702; 86900; 86901; 87086; 99284-25

== ENCOUNTER → 2022-11-29 | Outpatient (CLI) | payer BC | END | disposition home or self-care (01) | LOC: LAB SHORT 16:01 → LAB 16:01 | DX: R31.9 Hematuria, unspecified (principal) | CPT/HCPCS: 87086 ==

== ENCOUNTER → 2022-11-30 | Outpatient (CLI) | payer BC | END | disposition home or self-care (01) | LOC: LAB SHORT 16:00 → LAB 16:00 | DX: O09.899 Supervision of other high risk pregnancies, unspecified trimester (principal); Z36.89 Encounter for other specified antenatal screening | CPT/HCPCS: 36415 ==

== ENCOUNTER → 2023-01-03 | Outpatient (CLI) | payer BC | END | disposition home or self-care (01) | LOC: LAB SHORT 17:45 → LAB 17:45 | DX: N39.0 Urinary tract infection, site not specified (principal) | CPT/HCPCS: 87086 ==

== ENCOUNTER → 2023-03-01 | Outpatient (CLI) | payer BC ==
[2023-03-01 12:07] LABS: Source, Urine Clean Catch
[2023-03-01 15:27] LABS: Appearance, Urine Clear (Clear); Bilirubin, Urine Neg (Neg); Blood, Urine 3+ (Neg); Color, Urine Yellow (P-Yellow); Glucose Qualitative, Urine Neg (Neg); Ketones, Urine Neg (Neg); Leukocyte Esterase, Urine Neg (Neg); Nitrite, Urine Neg (Neg); Protein, Urine 1+ (Neg); Specific Gravity, Urine 1.015 (1.003-1.022); Urobilinogen, Urine NORM (Normal); pH, Urine 6.5 (5.0-8.0)
[2023-03-01 15:41] LABS: Bacteria Mod /hpf; Squamous Epithelial Cells Few /hpf (Few); White Blood Cells, Urine 0-2 /hpf (0-5)
== END ==
LOC: LAB SHORT 12:06 → LAB 12:06
PROVIDERS: Advanced Practice Midwife
DX: N39.0 Urinary tract infection, site not specified (principal)
CPT/HCPCS: 81001; 87086

== ENCOUNTER → 2023-05-26 | Outpatient (CLI) | payer BC | END | disposition home or self-care (01) | LOC: LAB SHORT 16:18 → LAB 16:18 | DX: O09.893 Supervision of other high risk pregnancies, third trimester (principal) | CPT/HCPCS: 87081; 87150 ==

== ENCOUNTER 2023-06-16 18:57 | Inpatient (IN) | payer BC ==
[~2023-06-16] VITALS: Ht 177.8 cm; Wt 100.9 kg
[2023-06-16 20:03] LABS: BASOPHILS ABSOLUTE AUTO 0.04 K/mm3 (0.00-0.23); BASOPHILS PERCENT AUTO 0 % (0-2); EOSINOPHILS ABSOLUTE AUTO 0.06 K/mm3 (0.00-0.68); EOSINOPHILS PERCENT AUTO 1 % (0-6); Hemoglobin 11.2 g/dL (11.5-16.0); IMMATURE GRAN PERCENT AUTO 3 % (0-1); LYMPHOCYTES ABSOLUTE AUTO 1.88 K/mm3 (0.84-5.20); LYMPHOCYTES PERCENT AUTO 17 % (21-46); MONOCYTES ABSOLUTE AUTO 0.84 K/mm3 (0.16-1.47); MONOCYTES PERCENT AUTO 8 % (4-13); Mean Corpuscular HGB 29.9 pg (26.0-34.0); Mean Corpuscular HGB Conc 33.9 g/dL (31.5-36.5); Mean Corpuscular Volume 88 fL (80-100); Mean Platelet Volume 9.3 fL (9.1-12.4); NEUTROPHILS ABSOLUTE AUTO 7.92 K/mm3 (1.96-9.15); NEUTROPHILS PERCENT AUTO 72 % (41-73); Platelet Count 251 K/mm3 (150-400); RDW Coefficient Variation 13.9 % (11.7-14.2); RDW Standard Deviation 44.4 fL (35.1-46.3); Red Blood Cell Count 3.75 M/mm3 (3.80-5.20); White Blood Cell Count 11.04 K/mm3 (4.00-11.30)
[2023-06-16 20:20] VITALS: BP 127/81
[2023-06-16] MEDS ORDERED: PRENATAL TABLE1 EAC2 PO (20:24)
[2023-06-16] MEDS ORDERED: IRON18 MG PO (20:24)
[2023-06-17] VITALS (34 sets, daily range): BP systolic 110–149; BP diastolic 59–87
--- NOTE | 2023-06-17 18:50 | NUR ---
REPORT WILL BE GIVEN TO ONCOMING SHIFT. MOTHER VERY ANXIOUS AND CONSTANTLY WORRYING THAT THINGS ARE NOT NORMAL OR ARE WRONG. LOTS OF TEACHING DONE AND REASSURED HER THAT EVERYTHING IS GOING WELL. LOCHIA SCANT AND AMBULATING IN ROOM WITH FAMILY AT BEDSIDE.
[2023-06-18 05:31] VITALS: BP 119/71
[2023-06-18 05:56] LABS: Hematocrit 26.4 % (33.0-51.0); Hemoglobin 8.8 g/dL (11.5-16.0); Mean Corpuscular HGB 29.7 pg (26.0-34.0); Mean Corpuscular HGB Conc 33.3 g/dL (31.5-36.5); Mean Corpuscular Volume 89 fL (80-100); Mean Platelet Volume 9.2 fL (9.1-12.4); Platelet Count 195 K/mm3 (150-400); RDW Coefficient Variation 13.9 % (11.7-14.2); RDW Standard Deviation 44.5 fL (35.1-46.3); Red Blood Cell Count 2.96 M/mm3 (3.80-5.20); White Blood Cell Count 12.89 K/mm3 (4.00-11.30)
[2023-06-18 08:40] VITALS: BP 124/68
== END 2023-06-18 12:35 | disposition home or self-care (01) | DRG 807 ==
LOC: OBS 18:57 → BC 18:57 → OBS 19:04 → BC 19:05
PROVIDERS: ADMIT Obstetrics & Gynecology
PROC: 10E0XZZ Delivery of Products of Conception, External Approach (ICD-10-PCS; principal; 2023-06-17)
PROC: 0KQM0ZZ Repair Perineum Muscle, Open Approach (ICD-10-PCS; 2023-06-17)
PROC: 10907ZC Drainage of Amniotic Fluid, Therapeutic from Products of Conception, Via Natural or Artificial Opening (ICD-10-PCS; 2023-06-17)
PROC: 3E033VJ Introduction of Other Hormone into Peripheral Vein, Percutaneous Approach (ICD-10-PCS; 2023-06-17)
PROC: 3E0DXGC Introduction of Other Therapeutic Substance into Mouth and Pharynx, External Approach (ICD-10-PCS; 2023-06-17)
PROC: 3E0R3BZ Introduction of Anesthetic Agent into Spinal Canal, Percutaneous Approach (ICD-10-PCS; 2023-06-17)
PROC: 00HU33Z Insertion of Infusion Device into Spinal Canal, Percutaneous Approach (ICD-10-PCS; 2023-06-17)
PROC: 3E0234Z Introduction of Serum, Toxoid and Vaccine into Muscle, Percutaneous Approach (ICD-10-PCS; 2023-06-17)
DX: O99.344 Other mental disorders complicating childbirth (principal); Z37.0 Single live birth; F41.9 Anxiety disorder, unspecified; Z79.899 Other long term (current) drug therapy; Z3A.39 39 weeks gestation of pregnancy; O70.1 Second degree perineal laceration during delivery; O69.1XX0 Labor and delivery complicated by cord around neck, with compression, not applicable or unspecified; O71.82 Other specified trauma to perineum and vulva; Z67.10 Type A blood, Rh positive
CPT/HCPCS: 36415; 51702; 85025; 85027; 86850; 86900; 86901; A9270; J1885; J2210; J2405; J2590; J2916; J7120

== ENCOUNTER 2023-11-21 19:04 | Emergency (ER) | payer BC ==
[~2023-11-21] VITALS: Ht 177.8 cm; Wt 97.5 kg
[~2023-11-21 19:04] MED LIST changes: +IRON18 MG PO; +PRENATAL TABLE1 EAC2 PO
[2023-11-21 19:14] VITALS: BP 151/97
== END 2023-11-21 21:11 | disposition home or self-care (01) ==
LOC: ER 19:04
DX: J06.9 Acute upper respiratory infection, unspecified (principal); Z79.899 Other long term (current) drug therapy
CPT/HCPCS: 87081; 87430; 99283

== ENCOUNTER → 2024-02-05 | Outpatient (CLI) | payer BC ==
[~2024-02-05] MED LIST changes: +AMOCLA875 PO; +CEFD300 PO; +CIPHYDOTSU; +PRED20 PO
== END | disposition home or self-care (01) ==
LOC: LAB SHORT 16:10
DX: H92.02 Otalgia, left ear (principal); L08.9 Local infection of the skin and subcutaneous tissue, unspecified
CPT/HCPCS: 87070; 87077; 87186; 87205

== ENCOUNTER 2024-07-03 12:42 | Emergency (ER) | payer BC ==
[~2024-07-03] VITALS: Ht 177.8 cm; Wt 95.7 kg
[2024-07-03] MEDS ORDERED: Ondansetron HCl 2 MG / ML 2ML Vial IV PRN (12:50)
[2024-07-03 13:29] LABS: BASOPHILS ABSOLUTE AUTO 0.02 K/mm3 (0.00-0.23); BASOPHILS PERCENT AUTO 0 % (0-2); EOSINOPHILS ABSOLUTE AUTO 0.05 K/mm3 (0.00-0.68); EOSINOPHILS PERCENT AUTO 1 % (0-6); Hematocrit 40.8 % (33.0-51.0); Hemoglobin 13.8 g/dL (11.5-16.0); IMMATURE GRAN ABSOLUTE AUTO 0.04 K/mm3 (0.00-0.10); IMMATURE GRAN PERCENT AUTO 1 % (0-1); LYMPHOCYTES ABSOLUTE AUTO 1.71 K/mm3 (0.84-5.20); LYMPHOCYTES PERCENT AUTO 20 % (21-46); MONOCYTES ABSOLUTE AUTO 0.56 K/mm3 (0.16-1.47); MONOCYTES PERCENT AUTO 7 % (4-13); Mean Corpuscular HGB 28.8 pg (26.0-34.0); Mean Corpuscular HGB Conc 33.8 g/dL (31.5-36.5); Mean Corpuscular Volume 85 fL (80-100); Mean Platelet Volume 8.9 fL (9.1-12.4); NEUTROPHILS ABSOLUTE AUTO 6.22 K/mm3 (1.96-9.15); NEUTROPHILS PERCENT AUTO 72 % (41-73); Platelet Count 273 K/mm3 (150-400); RDW Coefficient Variation 11.9 % (11.7-14.2); RDW Standard Deviation 36.7 fL (35.1-46.3); Red Blood Cell Count 4.79 M/mm3 (3.80-5.20)
[2024-07-03 13:47] LABS: Albumin, Blood 3.9 g/dL (3.4-5.0); Albumin/Globulin Ratio 0.9 (0.8-1.8); Bilirubin, Total 0.6 mg/dL (0.1-1.0); Bun/Creatinine Ratio 16.6 (12.0-20.0); Calcium, Blood 9.1 mg/dL (8.5-10.1); Creatinine, Blood 0.72 mg/dL (0.40-1.00); Globulin, Blood 4.2 g/dL (2.2-4.0); Potassium, Blood 3.8 mmol/L (3.5-5.5); Total Protein, Blood 8.1 g/dL (6.4-8.2)
[2024-07-03] MEDS ORDERED: NS 1,000 ML IV SCH (14:15)
[2024-07-03 18:30] VITALS: BP 134/80
== END 2024-07-03 18:51 | disposition home or self-care (01) ==
LOC: ER 12:42
PROVIDERS: Emergency Medicine
DX: R55 Syncope and collapse (principal); E86.0 Dehydration
CPT/HCPCS: 71046; 71260; 80053; 83735; 83880; 84484; 84703; 85025; 85379; J2405; J7030; Q9967

== ENCOUNTER → 2024-07-14 | Outpatient (CLI) | payer BC | LOC: LAB SHORT 18:26 → LAB 18:26 | PROVIDERS: Family Medicine | DX: Z01.419 Encounter for gynecological examination (general) (routine) without abnormal findings (principal) | CPT/HCPCS: G0123 ==

== ENCOUNTER → 2024-08-21 | Outpatient (CLI) | payer BC | LOC: LAB 15:14 → LAB SHORT 15:14 | DX: N39.0 Urinary tract infection, site not specified (principal) | CPT/HCPCS: 87077; 87086; 87186 ==

== ENCOUNTER 2024-12-15 08:08 | Day surgery (SDC) | payer BC ==
[~2024-12-15] VITALS: Ht 177.8 cm; Wt 87.0 kg
[~2024-12-15 08:08] MED LIST changes: +Dexamethasone Sod Phos 10 MG/ML 1ML VIAL ONE; +Ondansetron HCl 2 MG / ML 2ML Vial ONE; +propofoL 40 ML IV ONE
[2024-12-15] MEDS ORDERED: Lactated Ringer's 1,000 ML IV ONE ×2 (08:52→10:42)
[2024-12-15] MEDS ORDERED: ACET500 PO (08:54)
[2024-12-15] MEDS ORDERED: SERT25 PO (08:54)
[2024-12-15] MEDS ORDERED: FentaNYL Citrate 50 MCG/ML 2 ML Injection ONE (09:02)
[2024-12-15] MEDS ORDERED: Midazolam HCl 1MG / ML 2ML Vial ONE (09:02)
--- NOTE | 2024-12-15 10:39 | NUR ---
12/15/[address] GRACE Panda VERBAL ORDER TO GIVE 2L OF LR TO GIVE PRIOR TO DISCHARGE. 1L OR LR ALREADY STARTED AT PACU BY DR EDWARDS.
[2024-12-15] MEDS ORDERED: Ibuprofen 400 MG Tab ONE (11:02)
[2024-12-15] MEDS ORDERED: OxyCODONE 5 mg/Acetamin 325 mg TABLET ONE (11:02)
[2024-12-15 11:04] VITALS: BP 111/60
--- NOTE | 2024-12-15 11:23 | NUR ---
12/15/24 1123 Lili Cheema PT RECEIVED 800MG OF IBUPROFEN AT 1115. PT RECEIVED 5/325MG OF PERCOCET AT 1115. PT ABLE TO TOLERATE FLUIDS AND SNACKS WELL. PT STATED THAT HER PAIN LEVEL WAS AT A 7-8/10. PT WOULD LIKE TO GET HER PAIN LEVEL DOWN TO A 4/10 BEFORE GOING HOME. VSS, WCTM. PT EDUCATION PROVIDED. REASSURED PT THAT VS ARE WITHIN NORMAL LIMITS. PT CALMED DOWN, ALL QUESTIONS ANSWERED, CONCERNS ADDRESSED. PT'S FAMILY AT SIDE OF RECLINER AT 1123.
== END 2024-12-15 11:45 | disposition home or self-care (01) ==
LOC: ORSCSDS 08:08
PROVIDERS: Obstetrics & Gynecology
PROC: 10D17ZZ Extraction of Products of Conception, Retained, Via Natural or Artificial Opening (ICD-10-PCS; principal; 2024-12-15 09:30)
DX: O02.1 Missed abortion (principal); E28.2 Polycystic ovarian syndrome; Z79.899 Other long term (current) drug therapy
CPT/HCPCS: 88305; 88342; 88374; A9270; J1100; J2250; J2405; J2704; J3010; J7120

== ENCOUNTER 2024-12-15 14:26 | Observation (INO) | payer BC ==
[~2024-12-15] VITALS: Ht 177.8 cm; Wt 95.2 kg
[~2024-12-15 14:26] MED LIST changes: +ACET500 PO; -Dexamethasone Sod Phos 10 MG/ML 1ML VIAL ONE; -Ondansetron HCl 2 MG / ML 2ML Vial ONE; +SERT25 PO; -propofoL 40 ML IV ONE
[2024-12-15] MEDS ORDERED: NS 1,000 ML IV SCH (14:50)
[2024-12-15 15:48] LABS: Hemoglobin 10.4 g/dL (11.5-16.0); Mean Corpuscular HGB 30.4 pg (26.0-34.0); Mean Corpuscular HGB Conc 35.9 g/dL (31.5-36.5); Mean Corpuscular Volume 85 fL (80-100); RDW Coefficient Variation 13.3 % (11.7-14.2); RDW Standard Deviation 40.8 fL (35.1-46.3); Red Blood Cell Count 3.42 M/mm3 (3.80-5.20); White Blood Cell Count 12.75 K/mm3 (4.00-11.30)
[2024-12-15 15:49] LABS: Albumin, Blood 2.9 g/dL (3.4-5.0); Albumin/Globulin Ratio 0.8 (0.8-1.8); Bilirubin, Total 0.3 mg/dL (0.1-1.0); Bun/Creatinine Ratio 11.8 (12.0-20.0); Calcium, Blood 8.5 mg/dL (8.5-10.1); Creatinine, Blood 0.51 mg/dL (0.40-1.00); Globulin, Blood 3.6 g/dL (2.2-4.0); Potassium, Blood 4.8 mmol/L (3.5-5.5); Total Protein, Blood 6.5 g/dL (6.4-8.2)
[2024-12-15] MEDS ORDERED: Misoprostol 200 MCG Tab PO ONE (16:15)
[2024-12-15] MEDS ORDERED: Misoprostol 100 MCG Tab PO ONE ×2 (16:15→17:45)
[2024-12-15 16:22] LABS: BASOPHILS PERCENT MAN 0 % (0-2); EOSINOPHILS PERCENT MAN 0 % (0-6); LYMPHOCYTES ABSOLUTE MAN 0.76 K/mm3 (0.84-5.20); LYMPHOCYTES PERCENT MAN 6 % (21-46); MONOCYTES PERCENT MAN 0 % (4-13); NEUTROPHILS ABSOLUTE MAN 11.98 K/mm3 (1.96-9.15); SEG NEUTROPHILS PERCENT MAN 94 % (41-73); TOTAL CELLS COUNTED 100
[2024-12-15 16:23] LABS: Mean Platelet Volume 9.4 fL (9.1-12.4); Platelet Count 199 K/mm3 (150-400)
[2024-12-15 16:37] LABS: International Normalized Ratio 0.96; Prothrombin Time Results 10.3 Sec (9.7-11.5)
[2024-12-15] MEDS ORDERED: D5W-NS 500 ML IV SCH (17:50)
[2024-12-15] MEDS ORDERED: Lactated Ringer's 1,000 ML IV ONE (17:50)
[2024-12-15] MEDS ORDERED: Ondansetron 4 MG TAB PO PRN (18:20)
[2024-12-15] MEDS ORDERED: DiphenhydrAMINE HCL 25 MG Cap PO PRN (18:25)
[2024-12-15] MEDS ORDERED: Acetaminophen 325 MG TABLET PO PRN (18:25)
[2024-12-15] MEDS ORDERED: Metoclopramide HCl 10 MG Tab PO PRN (18:25)
[2024-12-15] MEDS ORDERED: Ketorolac Tromethamine 30mg Vial IV PRN (18:25)
[2024-12-15] MEDS ORDERED: FLU VACC TS2024-25(6MOS UP)/PF 45 MCG/0.5 ML SYRINGE IM ONE (18:25)
[2024-12-15] MEDS ORDERED: Simethicone 80 MG Chew PO PRN (18:25)
--- NOTE | 2024-12-15 20:40 | NUR ---
ADMIT TO SURGICAL UNIT PT ARRIVED VIA GURNEY FROM ED WITH SPOUSE ATTENTIVE AT BEDSIDE. PT ABLE TO STAND AND TRANSFER SELF. IS A/OX4 WITH VSS. REPORTS PAIN AT [place] LEVEL. DENIES CP, N/T, SOB OR N/V. IS TOLERATING PO INTAKE. IV PATENT AND SL TO RIGHT A/C. SCANT VAGINAL BLEEDING NOTED ON ANAND PAD. PT APPEARS EXTREMELY ANXIOUS, REPORTS BASELINE WITH HX OF UNMANAGED ANXIETY. PT REPORTS STARTING ZOLOFT RECENTLY. DENIES NEEDS FOR PRN AT THIS TIME. PT REASSURED BY RN OF SITUATION AND EDUCATED ON ANTIANXIETY TECHINQUES, PT ABLE TO DEMONSTRATE AND TEACH BACK. PT/SPOUSE ALSO EDUCATION IRREGULAR BLEEDING SX, BOTH VERBALIZED UNDERSTANDING. ORIENTATION TO ROOM PROVIDED. PATIENT DENIES NEEDS.
[2024-12-15 20:42] VITALS: BP 129/69
[2024-12-16] VITALS (18 sets, daily range): BP systolic 110–134; BP diastolic 53–82
[2024-12-16 06:08] LABS: BASOPHILS ABSOLUTE AUTO 0.01 K/mm3 (0.00-0.23); BASOPHILS PERCENT AUTO 0 % (0-2); EOSINOPHILS ABSOLUTE AUTO 0.01 K/mm3 (0.00-0.68); EOSINOPHILS PERCENT AUTO 0 % (0-6); Hematocrit 23.8 % (33.0-51.0); Hemoglobin 8.1 g/dL (11.5-16.0); IMMATURE GRAN ABSOLUTE AUTO 0.02 K/mm3 (0.00-0.10); IMMATURE GRAN PERCENT AUTO 0 % (0-1); LYMPHOCYTES ABSOLUTE AUTO 2.66 K/mm3 (0.84-5.20); LYMPHOCYTES PERCENT AUTO 29 % (21-46); MONOCYTES ABSOLUTE AUTO 0.75 K/mm3 (0.16-1.47); MONOCYTES PERCENT AUTO 8 % (4-13); Mean Corpuscular Volume 88 fL (80-100); Mean Platelet Volume 8.9 fL (9.1-12.4); NEUTROPHILS ABSOLUTE AUTO 5.69 K/mm3 (1.96-9.15); NEUTROPHILS PERCENT AUTO 62 % (41-73); Platelet Count 176 K/mm3 (150-400); RDW Coefficient Variation 13.5 % (11.7-14.2); White Blood Cell Count 9.14 K/mm3 (4.00-11.30)
--- NOTE | 2024-12-16 06:29 | NUR ---
SHIFT SUMMARY NO ACUTE CHANGES T/O SHIFT. PT IS VOIDING, URINE YELLOW IN COLOR. LIGHT VAGINAL BLEEDING NOTED, PASSED SMALL TISSUE APPEARING CLOT 2CM IN DIAMETER X 1 DURING NIGHT. PT APPEARED LESS ANXIOUS T/O SHIFT, FREQUENT REASSURANCE FROM STAFF PROVIDED. SPOUSE ATTENTIVE AT BEDSIDE. IV SL. DESTINEE PO INTAKE, DENIES N/T. PT IND ROOM. REPORTS CRAMPING DISCOMFORT AT TOLERABLE LEVEL. PT CURRENTLY RESTING BED WITH EYES CLOSED, RESP EVEN. ABLE TO MAKE NEEDS KNOWN WITH CALL LIGHT IN REACH. PLAN FOR POTENTIONAL U/S TODAY. WILL GIVE REPORT TO ONCOMING RN.
[2024-12-16] MEDS ORDERED: Sertraline HCl 50 MG Tab PO SCH (09:00)
--- NOTE | 2024-12-16 10:30 | NUR ---
MORNING NOTE THIS RN ASSUMED CARE AT APPROX 0715. PATIENT ALERT AND ORIENTED X4. COMMUNICATES NEEDS EFFECTIVELY. EXPERIENCES EPISODES OF ANXIETY - MANAGING WITH SCHEDULED PO MEDICATION AND THERAPUETIC DISCUSSION, EDUCATION. VSS. SBP 110s. MAP >65. ON ROOM AIR, SATs >90%. RR EVEN, UNLABORED. REPORTING MODERATE VAGINAL BLEEDING WITH OCCASIONAL KENN SIZED BLOOD CLOTS. REPEAT US ORDERED BY MD UGARTE. PATIENT INDEPENDENT IN ROOM. SPOUSE AT BEDSIDE. CALL LIGHT IN REACH.
[2024-12-16] MEDS ORDERED: Sod Ferric Gluc Complx/Sucrose 125 MG in NS 100 ML IV SCH (11:01)
[2024-12-16 13:13] LABS: BASOPHILS ABSOLUTE AUTO 0.02 K/mm3 (0.00-0.23); BASOPHILS PERCENT AUTO 0 % (0-2); EOSINOPHILS ABSOLUTE AUTO 0.03 K/mm3 (0.00-0.68); EOSINOPHILS PERCENT AUTO 0 % (0-6); Hematocrit 24.5 % (33.0-51.0); Hemoglobin 8.2 g/dL (11.5-16.0); IMMATURE GRAN ABSOLUTE AUTO 0.04 K/mm3 (0.00-0.10); IMMATURE GRAN PERCENT AUTO 1 % (0-1); LYMPHOCYTES ABSOLUTE AUTO 2.49 K/mm3 (0.84-5.20); LYMPHOCYTES PERCENT AUTO 34 % (21-46); MONOCYTES ABSOLUTE AUTO 0.57 K/mm3 (0.16-1.47); MONOCYTES PERCENT AUTO 8 % (4-13); Mean Corpuscular HGB 29.7 pg (26.0-34.0); Mean Corpuscular HGB Conc 33.5 g/dL (31.5-36.5); Mean Corpuscular Volume 89 fL (80-100); Mean Platelet Volume 9.1 fL (9.1-12.4); NEUTROPHILS ABSOLUTE AUTO 4.24 K/mm3 (1.96-9.15); NEUTROPHILS PERCENT AUTO 57 % (41-73); Platelet Count 161 K/mm3 (150-400); RDW Coefficient Variation 13.6 % (11.7-14.2); RDW Standard Deviation 43.3 fL (35.1-46.3); Red Blood Cell Count 2.76 M/mm3 (3.80-5.20); White Blood Cell Count 7.39 K/mm3 (4.00-11.30)
--- NOTE | 2024-12-16 13:24 | NUR ---
UPDATE THIS RN CALLED TO ROOM PATIENT REPORTING FEELING SUDDENLY "FLUSHED" WITH NUMBNESS/TINGLING TO BUE. VS OBTAINED - VSS. PATIENT UP TO RESTROOM TO VOID WITH SBA - PATIENT REPORTS INCREASED VAGINAL BLEEDING AND LARGE CLOTS. UNABLE TO ASSESS BLEEDING PATIENT FLUSHED TOILET. HGB REMAINS >7. RESULTS OF REPEAT PELVIC/TRANSVAG US AVAILABLE. LOGGING TRUCK DRIVER PAWAN CONTACTED MD UGARTE WITH UPDATE. PATIENT NOW NPO FOR POSSIBLE REPEAT D&C. PATIENT REPORTS LAST PO INTAKE AROUND 0800 A "FEW SMALL BITES" OF A BAGEL. MD UGARTE ORDERED 800MG OF PO MISOPROSTOL. LOGGING TRUCK DRIVER PROVIDED PATIENT AND FAMILY WITH UPDATE.
[2024-12-16] MEDS ORDERED: Lactated Ringer's 1,000 ML IV ONE (14:25)
[2024-12-16] MEDS ORDERED: Methylergonovine Maleate 0.2MG / ML 1ML Amp ONE (14:36)
--- NOTE | 2024-12-16 14:50 | NUR ---
PATIENT TRANSFERRED OFF UNIT VIA BED FOR PROCEDURE
[2024-12-16] MEDS ORDERED: Midazolam HCl 1MG / ML 2ML Vial ONE (14:53)
--- NOTE | 2024-12-16 14:53 | NUR ---
AT APROX 1330 PT C/O INCREASED BLEEDING AND CLOTS. HGB STABLE, DR UGARTE CALLED. DUE TO US RESULTS STATES THAT SHE WILL PLAN D&C AT 1700. PT INFORMED OF PLAN AND WAS MADE NPO AT THAT TIME. 1340 PT CALLED C/O FEELING "FOGGY AND NOT WELL" THIS RN TO ROOM TO ASSESS, VSS. PT APPEARS ANXIOUS. ASKING MANY QUESTIONS, CONCERNED THAT SHE IS "DYING" PT REASSURED THAT HER VSS, LABS HAVE REMAINED STABLE. PT REQUESTING TO SPEAK TO DR SHANEL MD CONTACTED AT APROX 1354. CALLED INTO ROOM TO SPEAK WITH PT.
[2024-12-16] MEDS ORDERED: FentaNYL Citrate 50 MCG/ML 2 ML Injection ONE (14:54)
[2024-12-16] MEDS ORDERED: propofoL 20 ML IV ONE (14:54)
[2024-12-16] MEDS ORDERED: Metoclopramide HCl 5MG / ML 2ML Vial ONE (14:59)
[2024-12-16] MEDS ORDERED: Ondansetron HCl 2 MG / ML 2ML Vial ONE (14:59)
[2024-12-16] MEDS ORDERED: Dexamethasone Sod Phos 10 MG/ML 1ML VIAL ONE (14:59)
--- NOTE | 2024-12-16 15:05 | NUR ---
PT TO PACU FOR PREOP CARE FROM RM 210 VIA BED AT 1450. EXTREMELY NERVOUS REQUIRING CONTINIOUS REASSURANCE. AT BEDSIDE. AFEBRILE/VSS. LR AT TKO. SURGICAL HAT/BP CUFF/PAS SLEEVES PLACED. DARIA ANGUIANO CRNA NOW AT BEDSIDE.
--- NOTE | 2024-12-16 15:13 | NUR ---
PT TO OR 2 VIA BED IN STABLE CONDITION. NOW APPEARS RELAXED & COMFORTABLE.
[2024-12-16] MEDS ORDERED: Doxycycline Hyclate 200 MG in Dextrose 5% 500 ML IV ONE (15:15)
[2024-12-16] MEDS ORDERED: HYDROmorphone HCl/Pf 1MG SYR ONE (15:16)
[2024-12-16] MEDS ORDERED: Ketorolac Tromethamine 30mg Vial ONE (15:28)
--- NOTE | 2024-12-16 16:35 | NUR ---
RETURN TO UNIT AFTER RECEIVING REPORT FROM EYEGLASS FITTER, PATIENT TRANSFERRED BACK TO UNIT VIA BED AT APPROX 1620. PATIENT ALERT AND ORIENTED X4. COMMUNICATING NEEDS EFFECTIVELY. VSS. SBP 120s. MAP >65. ON ROOM AIR, SATs >90%. RR EVEN, UNLABORED. S/P D&C - SCANT VAGINAL BLEEDING ON PAD. DENIES PAIN BUT DOES REPORT "BURNING" IN VAGINA - ICE PACK IN PLACE. ASSISTED WITH BEDPAN USE - X1 VOID. DENIES N/V - WATER AND SMALL SNACKS WITHIN REACH. IV ABX INFUSING PER EMAR. AT BEDSIDE. CALL LIGHT IN REACH.
--- NOTE | 2024-12-16 18:01 | NUR ---
SHIFT SUMMARY SEE PREVIOUS NOTES - NO ACUTE CHANGES. VSS. DENIES PAIN AT THIS TIME. VAGINAL BURNING MANAGED WITH ICE PACK. MODERATE BLEEDING ON ANAND PAD. VOIDING. TOLERATING PO INTAKE. AT BEDSIDE. CALL LIGHT IN REACH.
[2024-12-16 18:42] LABS: BASOPHILS ABSOLUTE AUTO 0.01 K/mm3 (0.00-0.23); BASOPHILS PERCENT AUTO 0 % (0-2); EOSINOPHILS PERCENT AUTO 0 % (0-6); Hematocrit 28.1 % (33.0-51.0); Hemoglobin 9.7 g/dL (11.5-16.0); IMMATURE GRAN ABSOLUTE AUTO 0.08 K/mm3 (0.00-0.10); IMMATURE GRAN PERCENT AUTO 1 % (0-1); LYMPHOCYTES PERCENT AUTO 9 % (21-46); MONOCYTES ABSOLUTE AUTO 0.17 K/mm3 (0.16-1.47); MONOCYTES PERCENT AUTO 2 % (4-13); Mean Corpuscular HGB 30.2 pg (26.0-34.0); Mean Corpuscular HGB Conc 34.5 g/dL (31.5-36.5); Mean Corpuscular Volume 88 fL (80-100); Mean Platelet Volume 8.8 fL (9.1-12.4); NEUTROPHILS ABSOLUTE AUTO 9.87 K/mm3 (1.96-9.15); NEUTROPHILS PERCENT AUTO 89 % (41-73); Platelet Count 184 K/mm3 (150-400); RDW Coefficient Variation 13.6 % (11.7-14.2); RDW Standard Deviation 42.4 fL (35.1-46.3); Red Blood Cell Count 3.21 M/mm3 (3.80-5.20); White Blood Cell Count 11.13 K/mm3 (4.00-11.30)
--- NOTE | 2024-12-17 00:43 | NUR ---
TRANSFER OF CARE PT IS POD1 FOR D&C. HIGH ANXIETY BUT COOPERATIVE W/ CARE. MILD TO MODERATE VAG BLEEDING, NO VISIBLE CLOTS PRESENT, PT HAS NOT SATURATED A ANAND PAD THIS SHIFT. REPORTS MILD CRAMPING AND URETHRAL DISCOMFORT POST [place], USING ICE FOR COMFORT AND DENIES NEED FOR PAIN MEDS. TOLERATING REG DIET AND PO FLUIDS, VOIDING APPROPRIATELY, SBA/IND TO BR. FAMILY AT BEDSIDE. VSS. PT RESTING PEACEFULLY W/ CALL LIGHT IN REACH.
[2024-12-17 00:50] VITALS: BP 115/63
[2024-12-17 04:52] VITALS: BP 117/65
--- NOTE | 2024-12-17 05:30 | NUR ---
NOC SHIFT SUMMARY- PT VERY ANXIOUS. PT HAD SOME MODERATE BLEEDING. PT DENIES PAIN. PT HAS HAD FAMILY AND FRIENDS VIST. THE VISITS WERE COMFORTING FOR THE PT. PT STAYED NIGHT. PT IS VOIDING. PT CURRENTLY RESTING QUIETLY. CALL LIGHT IN REACH.
[2024-12-17 07:15] VITALS: BP 126/65
[2024-12-17] MEDS ORDERED: Polyethylene Glycol 3350 17 gm PO PRN (10:35)
[2024-12-17 10:47] LABS: BASOPHILS ABSOLUTE AUTO 0.02 K/mm3 (0.00-0.23); BASOPHILS PERCENT AUTO 0 % (0-2); EOSINOPHILS ABSOLUTE AUTO 0.01 K/mm3 (0.00-0.68); EOSINOPHILS PERCENT AUTO 0 % (0-6); Hematocrit 25.1 % (33.0-51.0); Hemoglobin 8.4 g/dL (11.5-16.0); IMMATURE GRAN ABSOLUTE AUTO 0.07 K/mm3 (0.00-0.10); IMMATURE GRAN PERCENT AUTO 1 % (0-1); LYMPHOCYTES ABSOLUTE AUTO 3.76 K/mm3 (0.84-5.20); LYMPHOCYTES PERCENT AUTO 34 % (21-46); MONOCYTES PERCENT AUTO 7 % (4-13); Mean Corpuscular HGB 29.9 pg (26.0-34.0); Mean Corpuscular HGB Conc 33.5 g/dL (31.5-36.5); Mean Corpuscular Volume 89 fL (80-100); Mean Platelet Volume 8.8 fL (9.1-12.4); NEUTROPHILS ABSOLUTE AUTO 6.29 K/mm3 (1.96-9.15); NEUTROPHILS PERCENT AUTO 58 % (41-73); Platelet Count 178 K/mm3 (150-400); RDW Coefficient Variation 13.8 % (11.7-14.2); Red Blood Cell Count 2.81 M/mm3 (3.80-5.20); White Blood Cell Count 10.95 K/mm3 (4.00-11.30)
[2024-12-17 12:27] VITALS: BP 125/86
[2024-12-17 14:44] VITALS: BP 125/72
--- NOTE | 2024-12-17 15:10 | NUR ---
DISCHARGE NOTE THIS RN ASSUMED CARE AT APPROX 0715. AFEBRILE. VSS. POD 1 D&C - MODERATE VAGINAL BLEEDING WITH NO CLOTS. IRON INFUSION ADMINISTERED PER EMAR THIS MORNING. HGB SUSTAINING >7. DENIES PAIN. VOIDING. X1 BM TODAY. MD UGARTE UPDATED OVER PHONE - DC HOME ORDERED. PATIENT AGREEABLE WITH DC HOME. IV REMOVED. DC EDUCATION PROVIDED - PATIENT STATES UNDERSTANDING. PERSONAL BELONGINGS WITH PATIENT. PATIENT TRANSFERRED TO PERSONAL VEHICLE VIA AT APPROX 1510.
== END 2024-12-17 15:10 | disposition home or self-care (01) ==
LOC: ER 14:26 → SURS 14:27 → ERHOLD 14:27 → ER 14:27 → SURS 14:27 → ERHOLD 20:41 → SURS 20:41
PROVIDERS: Student in an Organized Health Care Education/Training Program; ADMIT Obstetrics & Gynecology
PROC: 10D17ZZ Extraction of Products of Conception, Retained, Via Natural or Artificial Opening (ICD-10-PCS; principal; 2024-12-16 13:30)
DX: O03.1 Delayed or excessive hemorrhage following incomplete spontaneous abortion (principal); D62 Acute posthemorrhagic anemia; F41.9 Anxiety disorder, unspecified; E28.2 Polycystic ovarian syndrome; Z79.899 Other long term (current) drug therapy
CPT/HCPCS: 36415; 76856; 76857; 76998; 80053; 82947; 85025; 85610; 85730; 86850; 86900; 86901; 88305; 93005; 93010; 99285-25; A9270; J1100; J1171; J1885; J2210; J2250; J2405; J2704; J2765; J2916; J3010; J7030; J7042; J7060; J7120

== ENCOUNTER → 2024-12-19 | Outpatient (CLI) | payer BC ==
[~2024-12-19] MED LIST changes: +REGLAN1013 PO
[2024-12-19 18:21] LABS: BASOPHILS ABSOLUTE AUTO 0.02 K/mm3 (0.00-0.23); BASOPHILS PERCENT AUTO 0 % (0-2); EOSINOPHILS ABSOLUTE AUTO 0.05 K/mm3 (0.00-0.68); EOSINOPHILS PERCENT AUTO 1 % (0-6); Hematocrit 28.7 % (33.0-51.0); Hemoglobin 9.7 g/dL (11.5-16.0); IMMATURE GRAN ABSOLUTE AUTO 0.06 K/mm3 (0.00-0.10); IMMATURE GRAN PERCENT AUTO 1 % (0-1); LYMPHOCYTES ABSOLUTE AUTO 2.17 K/mm3 (0.84-5.20); LYMPHOCYTES PERCENT AUTO 29 % (21-46); MONOCYTES ABSOLUTE AUTO 0.55 K/mm3 (0.16-1.47); MONOCYTES PERCENT AUTO 7 % (4-13); Mean Corpuscular HGB 29.8 pg (26.0-34.0); Mean Corpuscular HGB Conc 33.8 g/dL (31.5-36.5); Mean Corpuscular Volume 88 fL (80-100); Mean Platelet Volume 8.6 fL (9.1-12.4); NEUTROPHILS ABSOLUTE AUTO 4.65 K/mm3 (1.96-9.15); NEUTROPHILS PERCENT AUTO 62 % (41-73); Platelet Count 258 K/mm3 (150-400); RDW Coefficient Variation 14.2 % (11.7-14.2); RDW Standard Deviation 43.8 fL (35.1-46.3); Red Blood Cell Count 3.25 M/mm3 (3.80-5.20)
[2024-12-19 18:31] LABS: Albumin, Blood 3.4 g/dL (3.4-5.0); Albumin/Globulin Ratio 0.9 (0.8-1.8); Bilirubin, Total 0.2 mg/dL (0.1-1.0); Bun/Creatinine Ratio 9.2 (12.0-20.0); Creatinine, Blood 0.76 mg/dL (0.40-1.00); Globulin, Blood 3.7 g/dL (2.2-4.0); Potassium, Blood 3.4 mmol/L (3.5-5.5); Total Protein, Blood 7.1 g/dL (6.4-8.2)
== END | disposition home or self-care (01) ==
LOC: LAB SHORT 18:17
PROVIDERS: Physician Assistant Medical
DX: R53.83 Other fatigue (principal)
CPT/HCPCS: 80053; 85025

== ENCOUNTER 2024-12-22 05:02 | Emergency (ER) | payer BC ==
[~2024-12-22] VITALS: Ht 175.3 cm; Wt 83.9 kg
[~2024-12-22 05:02] MED LIST changes: -REGLAN1013 PO
[2024-12-22] MEDS ORDERED: Ketorolac Tromethamine 30mg Vial IV ONE (06:15)
[2024-12-22] MEDS ORDERED: DiphenhydrAMINE HCl 50 MG/ML 1ML Vial IV ONE (06:15)
[2024-12-22] MEDS ORDERED: Metoclopramide HCl 5MG / ML 2ML Vial IV ONE (06:15)
[2024-12-22] MEDS ORDERED: NS 1,000 ML IV SCH (06:45)
[2024-12-22 06:57] LABS: BASOPHILS ABSOLUTE AUTO 0.02 K/mm3 (0.00-0.23); BASOPHILS PERCENT AUTO 0 % (0-2); EOSINOPHILS ABSOLUTE AUTO 0.08 K/mm3 (0.00-0.68); EOSINOPHILS PERCENT AUTO 1 % (0-6); Hemoglobin 9.4 g/dL (11.5-16.0); IMMATURE GRAN ABSOLUTE AUTO 0.06 K/mm3 (0.00-0.10); IMMATURE GRAN PERCENT AUTO 1 % (0-1); LYMPHOCYTES ABSOLUTE AUTO 1.95 K/mm3 (0.84-5.20); LYMPHOCYTES PERCENT AUTO 28 % (21-46); MONOCYTES ABSOLUTE AUTO 0.53 K/mm3 (0.16-1.47); MONOCYTES PERCENT AUTO 8 % (4-13); Mean Corpuscular HGB 30.2 pg (26.0-34.0); Mean Corpuscular HGB Conc 33.6 g/dL (31.5-36.5); Mean Corpuscular Volume 90 fL (80-100); Mean Platelet Volume 8.8 fL (9.1-12.4); NEUTROPHILS ABSOLUTE AUTO 4.27 K/mm3 (1.96-9.15); NEUTROPHILS PERCENT AUTO 62 % (41-73); Platelet Count 246 K/mm3 (150-400); RDW Coefficient Variation 14.6 % (11.7-14.2); RDW Standard Deviation 46.8 fL (35.1-46.3); Red Blood Cell Count 3.11 M/mm3 (3.80-5.20); White Blood Cell Count 6.91 K/mm3 (4.00-11.30)
[2024-12-22 07:11] LABS: Albumin, Blood 3.2 g/dL (3.4-5.0); Bilirubin, Total 0.3 mg/dL (0.1-1.0); Bun/Creatinine Ratio 16.3 (12.0-20.0); Creatinine, Blood 0.74 mg/dL (0.40-1.00); Globulin, Blood 3.3 g/dL (2.2-4.0); Potassium, Blood 3.7 mmol/L (3.5-5.5); Total Protein, Blood 6.5 g/dL (6.4-8.2)
[2024-12-22] MEDS ORDERED: REGLAN1013 PO (09:34)
[2024-12-22 10:00] VITALS: BP 120/69
== END 2024-12-22 10:26 | disposition home or self-care (01) ==
LOC: ER 05:02
PROVIDERS: Student in an Organized Health Care Education/Training Program
DX: G43.909 Migraine, unspecified, not intractable, without status migrainosus (principal); D64.9 Anemia, unspecified; Z79.899 Other long term (current) drug therapy
CPT/HCPCS: 80053; 85025; 96374; 96375; 99283-25; J1200; J1885; J2765; J7030

== ENCOUNTER 2025-01-23 02:42 | Day surgery (SDC) | payer BC ==
[~2025-01-23 02:42] MED LIST changes: +REGLAN1013 PO
[2025-01-23] MEDS ORDERED: Methotrexate Sod 25MG / ML 2ML Vial IM SCH (06:00)
[2025-01-23 15:45] VITALS: BP 122/78
== END 2025-01-23 16:00 | disposition home or self-care (01) ==
LOC: ATC 02:42
DX: O08.89 Other complications following an ectopic and molar pregnancy (principal); O01.9 Hydatidiform mole, unspecified
CPT/HCPCS: 96372; J9260